=== PATIENT | male | born 1995 | race African-American/Black ===

== ENCOUNTER 2023-03-06 22:53 | Inpatient (IN) | payer SELFPAY ==
[2023-03-06] MEDS ORDERED: HYDROmorphone 0.5 MG/0.5 ML SYRINGE ONE (23:40)
[2023-03-06] MEDS ORDERED: Ondansetron PF 4 MG/2 ML Vial ONE (23:41)
[2023-03-06 23:48] LABS: Hematocrit 52.9 % (42.0-52.0); Manual Diff?? YES; Mean Corpuscular HGB CONC 35.9 g/dL (32.0-36.0); Mean Corpuscular Hemoglobin 30.4 pg (27.0-31.0); Mean Corpuscular Volume 84.8 fl (78.0-98.0); Mean Platelet Volume 10.7 fL (7.4-10.4); Platelet Count 385 10x3/uL (130-400); RBC Distribution Width 12.1 % (11.5-14.5); Red Blood Cell (RBC) Count 6.24 mill/uL (4.70-6.10); White Blood Cell (WBC) Count 15.5 10x3/uL (4.8-10.8)
[2023-03-06 23:50] LABS: Delete Auto Diff?? YES
[2023-03-07 00:13] LABS: CellaVision Operator ID lab.abc; Large Platelets 10.7 % (0-5); Lymphocytes 7 % (21-51); Monocytes 11 % (0-10); Neutrophil 78 % (42-75); Platelet Adequacy Comment Platelets Normal; RBC Morphology Within Normal Limits; Reactive Lymphocytes 4 % (0-10); Smudge Cells 20.4 %; Total Cell Count 103
[2023-03-07 00:16] LABS: ALT (SGPT) 55 U/L (8-55); AST (SGOT) 54 U/L (5-34); Alkaline Phosphatase 54 U/L (40-110); Anion Gap 26 mmol/L (10-20); BUN (Urea Nitrogen) 38 mg/dL (8.9-20.6); Bilirubin, Total 0.5 mg/dL (0.2-1.2); CK (CPK) 1363 U/L (30-200); Calc. Creatinine Clearance 0 mL/min (70-130); Calcium 11.9 mg/dL (7.8-10.44); Carbon Dioxide 19 mmol/L (22-29); Chloride 82 mmol/L (98-107); Estimated GFR 15; Globulin 4.8 g/dL (2.4-3.5); Glucose 159 mg/dL (70-105); Lipase 27 U/L (8-78); Potassium 3.8 mmol/L (3.5-5.1); Protein, Total 10.8 g/dL (6.0-8.3); Sodium 123 mmol/L (136-145)
[2023-03-07 01:10] LABS: Magnesium 3.2 mg/dL (1.6-2.6)
[2023-03-07 01:13] LABS: Actual Bicarbonate (HCO3v) 18.3 mEq/L (22-28); Base Excess -7.1 mEq/L (-2.0 to +3.0); Calcium, Ionized (venous) 1.14 mmol/L (1.16-1.32); Chloride (VBG) 90 mmol/L (98-106); Hematocrit-VBG 57 % (42.0-52.0); Hemoglobin (Hb) 19.3 g/dL (13.2-17.3); Potassium (VBG) 3.96 mmol/L (3.70-5.30); Sodium 132 mmol/L (133-146)
[2023-03-07 01:14] LABS: Troponin I 0.072 ng/mL (< 0.028)
[2023-03-07] MEDS ORDERED: Ondansetron ODT 4 MG TAB PO PRN (01:43)
[2023-03-07] MEDS ORDERED: Ondansetron PF 4 MG/2 ML Vial IVP PRN (01:43)
[2023-03-07] MEDS ORDERED: Acetaminophen 650 MG Suppository PR PRN (01:43)
[2023-03-07] MEDS ORDERED: Pantoprazole 40 MG VIAL IVP SCH ×2 (02:45→09:00)
[2023-03-07 03:25] VITALS: BMI 19.5
[2023-03-07 03:58] LABS: Hematocrit 47.3 % (42.0-52.0); Hemoglobin 16.6 g/dL (14.0-18.0); Manual Diff?? YES; Mean Corpuscular HGB CONC 35.1 g/dL (32.0-36.0); Mean Corpuscular Volume 85.5 fl (78.0-98.0); Mean Platelet Volume 10.6 fL (7.4-10.4); Platelet Count 316 10x3/uL (130-400); RBC Distribution Width 12.1 % (11.5-14.5); Red Blood Cell (RBC) Count 5.53 mill/uL (4.70-6.10); White Blood Cell (WBC) Count 16.8 10x3/uL (4.8-10.8)
[2023-03-07] MEDS ORDERED: Pantoprazole 40 MG VIAL ONE ×2 (04:01→08:53)
[2023-03-07 04:43] LABS: Delete Auto Diff?? YES
[2023-03-07 05:14] LABS: Anion Gap 18 mmol/L (10-20); BUN (Urea Nitrogen) 38 mg/dL (8.9-20.6); Calc. Creatinine Clearance 25 mL/min (70-130); Calcium 9.8 mg/dL (7.8-10.44); Carbon Dioxide 23 mmol/L (22-29); Chloride 90 mmol/L (98-107); Estimated GFR 21; Glucose 123 mg/dL (70-105); Sodium 127 mmol/L (136-145)
[2023-03-07 05:40] LABS: CellaVision Operator ID lab.abc; Large Platelets 7.9 % (0-5); Lymphocytes 6 % (21-51); Monocytes 5 % (0-10); Neutrophil 85 % (42-75); Platelet Adequacy Comment Platelets Normal; RBC Morphology Within Normal Limits; Reactive Lymphocytes 4 % (0-10); Smudge Cells 5.9 %; Total Cell Count 101
[2023-03-07 07:44] LABS: Anion Gap 16 mmol/L (10-20); BUN (Urea Nitrogen) 35 mg/dL (8.9-20.6); CK (CPK) 1461 U/L (30-200); Calc. Creatinine Clearance 32 mL/min (70-130); Calcium 9.2 mg/dL (7.8-10.44); Carbon Dioxide 23 mmol/L (22-29); Chloride 94 mmol/L (98-107); Estimated GFR 29; Glucose 117 mg/dL (70-105); Potassium 3.5 mmol/L (3.5-5.1); Sodium 129 mmol/L (136-145)
[2023-03-07 09:18] LABS: Bacteria/HPF None Seen HPF (None Seen); Bilirubin Negative (Negative); Blood, Urine 1+ (Negative); Glucose, Urine (Dipstick) Normal (Negative); Ketone, Urine Negative (Negative); Leukocyte Negative Leu/uL (Negative); Nitrite Negative (Negative); Protein, Urine (Dipstick) 20 mg/dL (Neg-Trace); RBC/HPF 0-3 HPF (0-3); Specific Gravity, Urine 1.011 (1.002-1.036); Squamous Epithelial 0-3 HPF (0-3); Urobilinogen Normal mg/dL (Less than 2); WBC/HPF 0-3 HPF (0-3)
[2023-03-07 09:19] LABS: Amphetamine Not Detected (NotDetected); Barbiturates Screen Not Detected (NotDetected); Benzodiazepine Screen Not Detected (NotDetected); Cocaine Metabolite Screen Not Detected (NotDetected); Methadone Not Detected (NotDetected); Methamphetamine Not Detected (NotDetected); Opiate Screen Detected (NotDetected); Oxycodone Screen Not Detected (NotDetected); Phencyclidine (PCP) Not Detected (NotDetected); THC/Cannabinoid Screen Detected (NotDetected); Tricyclic Screen Not Detected (NotDetected)
[2023-03-07 09:29] LABS: Clarity Clear (Clear)
[2023-03-07 12:09] LABS: Anion Gap 16 mmol/L (10-20); BUN (Urea Nitrogen) 32 mg/dL (8.9-20.6); Calc. Creatinine Clearance 41 mL/min (70-130); Calcium 9.4 mg/dL (7.8-10.44); Carbon Dioxide 22 mmol/L (22-29); Chloride 94 mmol/L (98-107); Estimated GFR 39; Glucose 97 mg/dL (70-105); Potassium 3.6 mmol/L (3.5-5.1); Sodium 128 mmol/L (136-145)
[2023-03-07] MEDS: Acetaminophen 325 MG TAB PO PRN ×2 (15:59→20:59)
[2023-03-07] MEDS ORDERED: Morphine 2 MG/ML VIAL SLOW IVP SCH (20:15)
[2023-03-08 04:26] LABS: #Neutrophils 4.7 thou/uL (1.40-6.50); %Basophils 0.3 % (0.0-1.0); %Eosinophils 0.2 % (0.0-10.0); %Lymphocytes 34.1 % (21.0-51.0); %Monocytes 11.5 % (0.0-10.0); %Neutrophils 53.7 % (42.0-75.0); Hematocrit 45.6 % (42.0-52.0); Hemoglobin 15.8 g/dL (14.0-18.0); Mean Corpuscular HGB CONC 34.6 g/dL (32.0-36.0); Mean Corpuscular Hemoglobin 29.9 pg (27.0-31.0); Mean Corpuscular Volume 86.4 fl (78.0-98.0); Mean Platelet Volume 11.3 fL (7.4-10.4); Platelet Count 284 10x3/uL (130-400); RBC Distribution Width 12.3 % (11.5-14.5); Red Blood Cell (RBC) Count 5.28 mill/uL (4.70-6.10); White Blood Cell (WBC) Count 8.7 10x3/uL (4.8-10.8)
[2023-03-08 04:55] LABS: Anion Gap 16 mmol/L (10-20); BUN (Urea Nitrogen) 33 mg/dL (8.9-20.6); Calc. Creatinine Clearance 61 mL/min (70-130); Calcium 9.9 mg/dL (7.8-10.44); Carbon Dioxide 25 mmol/L (22-29); Chloride 96 mmol/L (98-107); Estimated GFR 62; Glucose 90 mg/dL (70-105); Potassium 3.9 mmol/L (3.5-5.1); Sodium 133 mmol/L (136-145)
[2023-03-08 07:58] VITALS: TEMP 98.4
[2023-03-08 11:55] VITALS: BP 155/88
== END 2023-03-08 13:45 | disposition home or self-care (01) | DRG 683 ==
LOC: ERS 22:53 → ERHOLD 03-07 01:00 → 2NO 03-07 10:51
PROVIDERS: ADMIT Student in an Organized Health Care Education/Training Program; ATTEND Family Medicine
DX: N17.9 Acute kidney failure, unspecified (principal); E87.1 Hypo-osmolality and hyponatremia; E87.20 Acidosis, unspecified; F10.129 Alcohol abuse with intoxication, unspecified; E86.0 Dehydration; E83.52 Hypercalcemia; E87.6 Hypokalemia; F12.10 Cannabis abuse, uncomplicated; Z91.018 Allergy to other foods
CPT/HCPCS: 36415; 76770; 80048; 80053; 80306; 81001; 82010; 82550; 82805; 83690; 83735; 84484; 85025; 93005; 93306; 96361; 96374; 96375; C9113; J1170; J2405

== ENCOUNTER 2024-11-04 10:58 | Inpatient (IN) | payer SELFPAY ==
[2024-11-04] MEDS ORDERED: Ondansetron PF 4 MG/2 ML Vial ONE (11:36)
[2024-11-04] MEDS ORDERED: Pantoprazole 40 MG VIAL ONE (11:37)
[2024-11-04] MEDS ORDERED: Magnesium 2 GM/50 ML BAG (IN WATER) ONE (11:37)
[2024-11-04 11:56] LABS: #Basophils 0.03 10x3/uL (0.0-0.2); #Eosinophils Less than 0.03 10x3/uL (0.0-0.7); #Monocytes 1.05 10x3/uL (0.11-0.59); #Neutrophils 7.80 10x3/uL (1.40-6.50); %Basophils 0.3 % (0.0-1.0); %Eosinophils 0.0 % (0.0-10.0); %Lymphocytes 17.7 % (21.0-51.0); %Monocytes 9.7 % (0.0-10.0); %Neutrophils 71.9 % (42.0-75.0); Hematocrit 54.5 % (42.0-52.0); Hemoglobin 18.9 g/dL (14.0-18.0); Mean Corpuscular Hemoglobin 29.1 pg (27.0-31.0); Mean Corpuscular Volume 84.0 fL (78.0-98.0); Platelet Count 343 10x3/uL (130-400); Red Blood Cell (RBC) Count 6.49 mill/uL (4.70-6.10); White Blood Cell (WBC) Count 10.84 10x3/uL (4.8-10.8)
[2024-11-04 12:28] LABS: ALT (SGPT) 46 U/L (Less than 45); AST (SGOT) 44 U/L (11-34); Albumin 5.7 g/dL (3.1-4.5); Alkaline Phosphatase 52 U/L (40-110); Anion Gap 28 mmol/L (10-20); BUN (Urea Nitrogen) 59 mg/dL (8.9-20.6); Bilirubin, Total 0.6 mg/dL (0.3-1.2); CK (CPK) 606 U/L (30-200); Calc. Creatinine Clearance 0 mL/min (70-130); Calcium 11.1 mg/dL (7.8-10.44); Carbon Dioxide 18 mmol/L (22-29); Chloride 92 mmol/L (98-107); Globulin 4.6 g/dL (2.4-3.5); Glucose 144 mg/dL (70-105); Lipase 17 U/L (8-78); Potassium 3.7 mmol/L (3.5-5.1); Sodium 134 mmol/L (136-145)
[2024-11-04 12:30] LABS: Acetaminophen Less than 10 mcg/mL (Less than 10); Salicylate Less than 8.0 mg/dL (Less than 8.0)
[2024-11-04 13:15] LABS: CAUTI Indications for Culture Acute Hematuria; Glucose, Urine (Dipstick) Normal (Negative); Leukocyte Negative Leu/uL (Negative); Protein, Urine (Dipstick) 100 mg/dL (Neg-Trace); RBC/HPF 0-3 HPF (0-3); Specific Gravity, Urine 1.024 (1.002-1.036)
[2024-11-04 13:16] LABS: Bacteria/HPF 1+ HPF (None Seen)
[2024-11-04 13:17] LABS: Urine Culture Reflex No No
[2024-11-04 13:19] LABS: Cocaine Metabolite Screen Negative (Negative); THC/Cannabinoid Screen PRELIM POSITIVE (Negative); Tricyclic Screen Negative (Negative)
[2024-11-04] MEDS ORDERED: Senokot S 8.6-50 MG TAB PO PRN (14:44)
[2024-11-04] MEDS ORDERED: Ondansetron PF 4 MG/2 ML Vial IVP PRN (14:44)
[2024-11-04] MEDS ORDERED: Melatonin 3 MG TAB PO PRN (14:44)
[2024-11-04] MEDS ORDERED: Electrolyte Replacement Protocol 1 EACH FS SCH (15:00)
[2024-11-04] MEDS ORDERED: Pantoprazole 40 MG VIAL IVP SCH (16:30)
[2024-11-04 16:49] VITALS: BMI 20.8
[2024-11-04 17:46] LABS: Anion Gap 18 mmol/L (10-20); BUN (Urea Nitrogen) 39 mg/dL (8.9-20.6); Calc. Creatinine Clearance 47 mL/min (70-130); Calcium 8.9 mg/dL (7.8-10.44); Carbon Dioxide 19 mmol/L (22-29); Chloride 104 mmol/L (98-107); Glucose 142 mg/dL (70-105); Magnesium 2.8 mg/dL (1.6-2.6); Potassium 3.8 mmol/L (3.5-5.1); Sodium 137 mmol/L (136-145)
[2024-11-04] MEDS: Heparin 5,000 UNITS/ML VIAL SC SCH (21:13)
[2024-11-05 05:20] LABS: #Basophils 0.04 10x3/uL (0.0-0.2); #Eosinophils 0.04 10x3/uL (0.0-0.7); #Monocytes 1.19 10x3/uL (0.11-0.59); #Neutrophils 4.25 10x3/uL (1.40-6.50); %Basophils 0.4 % (0.0-1.0); %Eosinophils 0.4 % (0.0-10.0); %Lymphocytes 37.9 % (21.0-51.0); %Monocytes 13.4 % (0.0-10.0); %Neutrophils 47.8 % (42.0-75.0); Hematocrit 38.5 % (42.0-52.0); Hemoglobin 13.0 g/dL (14.0-18.0); Mean Corpuscular Hemoglobin 29.7 pg (27.0-31.0); Mean Corpuscular Volume 88.1 fL (78.0-98.0); Platelet Count 214 10x3/uL (130-400); Red Blood Cell (RBC) Count 4.37 mill/uL (4.70-6.10); White Blood Cell (WBC) Count 8.90 10x3/uL (4.8-10.8)
[2024-11-05 05:41] LABS: ALT (SGPT) 25 U/L (Less than 45); AST (SGOT) 27 U/L (11-34); Albumin 3.7 g/dL (3.1-4.5); Alkaline Phosphatase 29 U/L (40-110); Anion Gap 11 mmol/L (10-20); BUN (Urea Nitrogen) 20 mg/dL (8.9-20.6); Bilirubin, Total 0.8 mg/dL (0.3-1.2); CK (CPK) 355 U/L (30-200); Calc. Creatinine Clearance 90 mL/min (70-130); Calcium 8.4 mg/dL (7.8-10.44); Carbon Dioxide 25 mmol/L (22-29); Chloride 109 mmol/L (98-107); Globulin 2.5 g/dL (2.4-3.5); Glucose 101 mg/dL (70-105); Potassium 3.6 mmol/L (3.5-5.1); Sodium 141 mmol/L (136-145)
[2024-11-05] MEDS: Pantoprazole 40 MG VIAL IVP SCH (08:41)
[2024-11-05] MEDS: Folic Acid 1 MG TAB PO SCH (08:41)
[2024-11-05] MEDS: Multivit, Therapeutic 1 TAB PO SCH (08:41)
[2024-11-05 11:16] VITALS: BP 134/89; TEMP 98.4
[2024-11-07] MEDS ORDERED: Thiamine 100 MG TAB PO SCH (09:00)
== END 2024-11-05 13:10 | disposition home or self-care (01) | DRG 683 ==
LOC: ERS 10:58 → ERHOLD 13:35 → OBS 15:46
PROVIDERS: ADMIT Internal Medicine; ATTEND Hospitalist
DX: N17.9 Acute kidney failure, unspecified (principal); E87.1 Hypo-osmolality and hyponatremia; M62.82 Rhabdomyolysis; E87.20 Acidosis, unspecified; Z91.018 Allergy to other foods; F10.10 Alcohol abuse, uncomplicated; E86.0 Dehydration; N18.9 Chronic kidney disease, unspecified; Z72.0 Tobacco use
CPT/HCPCS: 36415; 76700; 80053; 80306; 80307; 81001; 82550; 83690; 83735; 85025; 93005; 93010; 96361; 96365; 96375; J1644; J2470; J3411; J3475; J7030